=== PATIENT | male | born 1955 | race Caucasian/White ===

== ENCOUNTER 2016-05-17 15:29 | Outpatient (CLI) | payer OTHER, BC | END 2016-05-17 15:30 | disposition home or self-care (01) | DX: M51.26 Other intervertebral disc displacement, lumbar region (principal); M46.96 Unspecified inflammatory spondylopathy, lumbar region; M51.36 Other intervertebral disc degeneration, lumbar region; M25.48 Effusion, other site ==

== ENCOUNTER 2016-08-12 16:07 | Outpatient (CLI) | payer BC ==
--- NOTE | 2016-08-13 12:29 | XRAY Report ---
TWO-VIEW CHEST: 08/12/2016 CLINICAL INDICATION: Cough. FINDINGS: Frontal and lateral views of the chest are compared to previous films of 02/22/2013. The cardiac silhouette is within normal limits. Patchy bibasilar infiltrates are now present, superimpos ed upon COPD. No effusion or pneumothorax. IMPRESSION: PATCHY BIBASILAR AIRSPACE DISEASE, SUPERIMPOSED UPON COPD. JOB #: [id number] EXT JOB #:[id number]
== END 2016-08-12 16:08 | disposition home or self-care (01) ==
LOC: DI 16:07
PROVIDERS: ATTEND Internal Medicine
DX: J98.4 Other disorders of lung (principal); J44.9 Chronic obstructive pulmonary disease, unspecified
CPT/HCPCS: 71020

== ENCOUNTER 2016-09-13 09:32 | Outpatient (CLI) | payer BC ==
--- NOTE | 2016-09-13 12:56 | XRAY Report ---
TWO-VIEW CHEST: 09/13/2016 CLINICAL INDICATION: Followup infiltrates. COMPARISON: 08/12/2016 FINDINGS: Frontal and lateral views of the chest demonstrate a normal cardiac silhouette. Bibasilar air-space disease has improved. No effusion or pneumothorax is present. Hyperinflation is stable. IMPRESSION: IMPROVING BIBASILAR INFILTRATES. JOB #: [id number] EXT JOB #:[id number]
== END 2016-09-13 09:33 | disposition home or self-care (01) ==
LOC: DI 09:32
PROVIDERS: ATTEND Internal Medicine
DX: R91.8 Other nonspecific abnormal finding of lung field (principal)
CPT/HCPCS: 71020

== ENCOUNTER 2016-09-27 10:32 | Outpatient (CLI) | payer BC ==
[2016-09-27 10:56] LABS: CREATININE 0.7 mg/dL (0.6-1.2)
[2016-09-27] MEDS ORDERED: IOPAMIDOL-300 100 ML VIAL IVP ONE (11:29)
--- NOTE | 2016-09-27 13:33 | CT Report ---
CT CHEST WITH CONTRAST: 09/27/2016 CLINICAL INDICATION: Cough, infiltrate. TECHNIQUE: Axial CT images of the chest were obtained with 100 mL Isovue-300 intravenously. COMPARISON: Plain film 09/13/2016, 08/12/2016, CT 02/22/2013. FINDINGS: The heart and great vessels are unremarkable. No hilar or mediastinal lymphadenopathy is present. There is minimal ground-glass opacity in the lateral left upper lobe. No other infiltrate. No effusion or pneumothorax. Osseous structures demonstrate degenerative changes. Limited evaluat ion of upper abdominal structures demonstrates diffuse fatty infiltration of the liver. A cyst is se en arising from the posterior cortex of the right kidney. The adrenal glands are unremarkable. IMPRESSION: MINIMAL RESIDUAL GROUND-GLASS OPACITY IN THE LATERAL ASPECT OF THE LEFT UPPER LOBE. FAT TY INFILTRATION OF THE LIVER. In accordance with CT protocol optimization, one or more of the following dose reduction techniques w ere utilized for this exam: automated exposure control, adjustment of mA and/or KV based on patient size, or use of iterative reconstructive technique. JOB #: [id number] EXT JOB #:[id number]
== END 2016-09-27 10:33 | disposition home or self-care (01) ==
LOC: LAB 10:32
PROVIDERS: ATTEND Internal Medicine
DX: R91.8 Other nonspecific abnormal finding of lung field (principal); K76.0 Fatty (change of) liver, not elsewhere classified; R05 Cough
CPT/HCPCS: 36415; 71260; 82565; Q9967

== ENCOUNTER 2016-11-06 09:12 | Outpatient (CLI) | payer BC ==
[2016-11-06] MEDS ORDERED: ALBUTEROL NEB 2.5 MG/3 ML INH ONE (11:00)
== END 2016-11-06 09:13 | disposition home or self-care (01) ==
LOC: RT 09:12
PROVIDERS: ATTEND Internal Medicine
DX: R05 Cough (principal)
CPT/HCPCS: 94060; J7613

== ENCOUNTER 2017-06-05 07:34 | Day surgery (SDC) | payer BC ==
[2017-06-05] MEDS ORDERED: LACTATED RINGERS 1,000 ML IV ONE (07:38)
[2017-06-05] MEDS ORDERED: fentaNYL 250 MCG/5 ML VIAL IVP ONE (09:11)
[2017-06-05] MEDS ORDERED: MIDAZOLAM 2 MG/2 ML VIAL IVP ONE (09:11)
[2017-06-05 09:57] VITALS: BP 142/86
== END 2017-06-05 07:35 | disposition home or self-care (01) ==
LOC: SDS 07:34
PROVIDERS: ATTEND Surgery
PROC: 0DBN8ZX Excision of Sigmoid Colon, Via Natural or Artificial Opening Endoscopic, Diagnostic (ICD-10-PCS; 2017-06-05)
PROC: 0DBP8ZX Excision of Rectum, Via Natural or Artificial Opening Endoscopic, Diagnostic (ICD-10-PCS; 2017-06-05)
PROC: 0DBK8ZX Excision of Ascending Colon, Via Natural or Artificial Opening Endoscopic, Diagnostic (ICD-10-PCS; principal; 2017-06-05 08:45)
DX: Z12.11 Encounter for screening for malignant neoplasm of colon (principal); K51.40 Inflammatory polyps of colon without complications; K63.5 Polyp of colon; K57.30 Diverticulosis of large intestine without perforation or abscess without bleeding; K64.8 Other hemorrhoids; E11.9 Type 2 diabetes mellitus without complications
CPT/HCPCS: 45380; J3010; J7120; 88305

== ENCOUNTER 2018-12-29 13:04 | Emergency (ER) | payer BC, OTHER ==
--- NOTE | 2018-12-29 14:14 | ED Physician Documentation ---
History of Present Illness - Stated complaint Stated Complaint: FINGER LAC - Chief complaint Chief Complaint: Laceration - Additonal information Additional information: This is a 63-year-old male who presents with a laceration to pinky. He was using a sazall and his pinky he sounds like skimmed the blade and his finger breifly got impinged briefly against saw guard. He pulled away quickly and had a small cut that was bleeding, but he noticed some swelling on the Palmar surface of his finger so he wanted to get checked out. He denies numbness or tingling. The bleeding is been well controlled. He has not had a tetanus shot in many years. Review of Systems Skin: reports: Laceration (s) Musculoskeletal: reports: Extremity pain PD PAST MEDICAL HISTORY - Past Medical History Past Medical History: Yes Cardiovascular: None Respiratory: Pneumonia Endocrine/Autoimmune: None GI: Cholelithiasis : Kidney stones HEENT: None Psych: None Musculoskeletal: Osteoarthritis, Chronic back pain Derm: None - Past Surgical History Past Surgical History: Yes General: Cholecystectomy Ortho: Hip replacement, Spine surgery HEENT: Tonsil/Adenoidectomy - Present Medications Home Medications: Ambulatory Orders Medication Instructions Recorded Confirmed Acetaminophen [Tylenol] 1,000 mg PO BID 06/04/17 06/04/17 - Allergies Allergies/Adverse Reactions: Allergies Allergy/AdvReac Type Severity Reaction Status Date / Time No Known Drug Allergies Allergy Verified 01/04/14 01:14 - Social History Does the pt smoke?: No Smoking Status: Never smoker Does the pt drink ETOH?: No Does the pt have substance abuse?: No - Immunizations Immunizations are current?: Yes - POLST Patient has POLST: No PD ED PE NORMAL - Vitals Vital signs reviewed: Yes - General General: Alert and oriented X 3, No acute distress - Cardiac Cardiac: Strong equal pulses - Respiratory Respiratory: No respiratory distress - Extremities Extremities: Other (Left pinky finger has a 1 center meter laceration that extends from the ulnar aspect of the dorsal distal pinky to the edge of the lat eral nail fold, it does not damage the nail, no signs of nailbed or nail matrix involvement. There is no active bleeding. The wound approximates well with extension of the pinky. Sensation is intact light touch. There is no active bleeding. Patient is able to flex and extend his DIP joint PIP joint and MCP against resistance without issue. There is no signs of foreign body or tendon involvement. No exposed bone.) - Neuro Neuro: Alert and oriented X 3 - Psych Psych: Normal mood, Normal affect Results - Vitals Vitals: Oxygen O2 Source Room air Procedures - Laceration (location) Finger left Length in cm: 1 Wound type: Linear Neurovascular status: Sensory intact, Motor intact, Vascular intact Tendon involvement: Tendon intact Wound Preparation: Irrigated copiously NS Skin layer closure: Dermabond, Steri strips Other: Patient tolerated well, No complications, Tetanus booster given Complexity: Simple PD MEDICAL DECISION MAKING - ED course ED course: Pt presents with a simple laceration without bone or tendon involvement, digit is neurovascularly intact. It was cleaned and repaired with steri-strips and skin glue with a very good result. Tdap updated, wound care and followup/return precautions reviewed. Departure - Departure Disposition: 01 Home, Self Care Clinical Impression: Laceration of finger Qualifiers: Encounter type: initial encounter Finger: little finger Damage to nail status: without damage Foreign body presence: without foreign body Laterality: left Qualified Code(s): S61.217A - Laceration without foreign body of left little finger without damage to nail, initial encounter Condition: Good Instructions: ED Laceration Ext Skin Glue Follow-Up: Basilia Echevarria MD [Primary Care Provider] - (As needed) Comments: You were seen today for a laceration of your finger, this was repaired with a steri strip and skin glue that should flake off over the next 1-2 weeks. If you have signs of infection such as redness streaking up your finger or pus draining from the wound, please return to the emergency department. Discharge Date/Time: 12/29/18 15:06
[2018-12-29] MEDS ORDERED: TETANUS/DIPHTHERIA/PERTUSSIS 0.5 ML SYRINGE IM ONE (14:33)
[2018-12-29 15:07] VITALS: BP 165/80
== END 2018-12-29 15:06 | disposition home or self-care (01) ==
LOC: ED 13:04
DX: S61.217A Laceration without foreign body of left little finger without damage to nail, initial encounter (principal); W27.0XXA Contact with workbench tool, initial encounter; Z96.649 Presence of unspecified artificial hip joint; Z23 Encounter for immunization
CPT/HCPCS: 12001; 90471

== ENCOUNTER 2020-08-05 12:55 | Outpatient (CLI) | payer OTHER ==
--- NOTE | 2020-08-05 14:09 | Ultrasound Report ---
PROCEDURE: Head or Neck Soft Tissue INDICATIONS: ENLARGED LYMPH NODES TECHNIQUE: Real time scanning was performed of the neck region of interest, with image documentation . COMPARISON: None. FINDINGS: No soft tissue neck abnormality seen bilaterally. Note is made of several small lymph node s adjacent to the left submandibular gland but no enlarged lymph nodes are seen. The adjacent thyroid is normal in size. IMPRESSION: Normal size lymph nodes bilaterally, right side for comparison to the left side. Left side asymmetric palpable differences when compared to the right may be secondary to an inflammatory component or era ctive component involving the left-sided nodes. Continued clinical follow-up is recommended. Reviewed by: Finn Roman MD on 08/05/2020 1:08 PM [facility] Approved by: Finn Roman MD on 08/05/2020 1:08 PM [facility]AM[facility] Station ID: [id number]
== END 2020-08-05 12:56 | disposition home or self-care (01) ==
LOC: DI 12:55
PROVIDERS: ATTEND Internal Medicine
DX: R93.89 Abnormal findings on diagnostic imaging of other specified body structures (principal)

== ENCOUNTER 2020-09-09 10:56 | Emergency (ER) | payer OTHER ==
--- NOTE | 2020-09-09 11:17 | ED Physician Documentation ---
PD HPI URI - Stated complaint Stated Complaint: COUGH/THROAT PX - Chief complaint Chief Complaint: Heent - History obtained from History obtained from: Patient - History of Present Illness Timing - onset: How many days ago (3) Timing duration: Days (3) Timing details: Gradual onset, Still present Associated symptoms: Nasal congestion, Sore throat, Dry cough, Dyspnea. No: Fever, Chest pain, NVD Contributing factors: Sick contact (his daughter with similar symptoms and Dx with rhinovirus by PCR test last week (negative for COVID).) Similar symptoms before: Has not had sx before Recently seen: Other (COVID vaccine months ago) Review of Systems Constitutional: reports: Myalgias. denies: Fever Ears: denies: Ear pain Nose: reports: Congestion Throat: reports: Sore throat Respiratory: reports: Dyspnea, Cough. denies: Hemoptysis, Wheezing GI: denies: Abdominal Pain, Nausea, Vomiting, Diarrhea Skin: denies: Rash Neurologic: denies: Altered mental status, Headache PD PAST MEDICAL HISTORY - Past Medical History Cardiovascular: None Respiratory: Pneumonia Endocrine/Autoimmune: None GI: Cholelithiasis : Kidney stones HEENT: None Psych: None Musculoskeletal: Osteoarthritis, Chronic back pain Derm: None - Past Surgical History Past Surgical History: Yes General: Cholecystectomy Ortho: Hip replacement, Spine surgery HEENT: Tonsil/Adenoidectomy - Present Medications Home Medications: Ambulatory Orders Medication Instructions Recorded Confirmed Amoxicillin 500 mg PO TID #18 cap 09/09/20 Benzonatate [Tessalon] 100 mg PO TID PRN #20 cap 09/09/20 Tramadol HCl [Ultram] 50 mg PO Q6H PRN #12 tablet 09/09/20 dexAMETHasone [Decadron] 4 mg PO DAILY #5 tablet 09/09/20 glipiZIDE [Glipizide] 10 mg PO DAILY 09/09/20 09/09/20 lisinopriL [Zestril] 5 mg PO DAILY 09/09/20 09/09/20 - Allergies Allergies/Adverse Reactions: Allergies Allergy/AdvReac Type Severity Reaction Status Date / Time No Known Drug Allergies Allergy Verified 09/09/20 11:30 - Social History Does the pt smoke?: No Smoking Status: Never smoker Does the pt drink ETOH?: No Does the pt have substance abuse?: No - Immunizations Immunizations are current?: Yes - POLST Patient has POLST: No PD ED PE NORMAL - Vitals Vital signs reviewed: Yes - General General: Alert and oriented X 3, No acute distress, Well developed/nourished - HEENT HEENT: Ears normal, Moist mucous membranes, Pharynx benign - Neck Neck: Supple, no meningeal sign, No adenopathy - Cardiac Cardiac: RRR, No murmur - Respiratory Respiratory: Clear bilaterally - Abdomen Abdomen: Soft, Non tender - Derm Derm: Normal color, Warm and dry - Extremities Extremities: No edema - Neuro Neuro: Alert and oriented X 3, No motor deficit, Normal speech Results - Vitals Vitals: Vital Signs - 24 hr 09/09/20 09/09/20 11:04 12:58 Temperature 36.9 C Heart Rate 80 78 Respiratory 18 18 Rate Blood Pressure 146/85 H 150/90 H O2 Saturation 95 100 Oxygen O2 Source Room air PD MEDICAL DECISION MAKING - ED course Complexity details: considered differential (clinically doers not seem pneumonia. Exposed to family member with rhiovirus recently and the person was negative for COVID, and patient had vaccine months ago. So low prob for COVID. Can treat as likely viral. ), d/w patient Departure - Departure Disposition: 01 Home, Self Care Clinical Impression: Upper respiratory infection Qualifiers: URI type: unspecified URI Qualified Code(s): J06.9 - Acute upper respiratory infection, unspecified Dyspnea Qualifiers: Dyspnea type: shortness of breath Qualified Code(s): R06.02 - Shortness of breath Condition: Stable Record reviewed to determine appropriate education?: Yes Instructions: ED Upper Resp Infec No Abx Tx Follow-Up: Basilia Echevarria MD [Primary Care Provider] - Prescriptions: Amoxicillin 500 mg PO TID #18 cap dexAMETHasone [Decadron] 4 mg PO DAILY #5 tablet Benzonatate [Tessalon] 100 mg PO TID PRN #20 cap PRN Reason: Cough Tramadol HCl [Ultram] 50 mg PO Q6H PRN #12 tablet PRN Reason: Pain Comments: This is most likely a viral illness. We will try treating it with Decadron steroid for inflammation of the airways daily for 5 more days. Tessalon if need ed for cough and irritation. Add Tramadol if needed for throat pain or cough if needed as well. Use your albuterol inhaler 2 to 3 puffs 4 times a day for the next several days and then as needed. See how you do with the above medications and treatments. If you are not improving well over the next few days or have increased symptoms, then consider also a bacterial infection atop the viral and add amoxicillin as directed. If you are improving over the next few days, then hold on the antibiotic. You have a Covid test pending. You need to self quarantine until the result is done and negative. Do not leave your house. Do not get near anybody. The results should be done in 48 to 72 hours, but sometimes longer. We will call with a positive result, the fastest way to get a negative result for confirmation though is to go to the hospital website at [email or web address], click on the my [facility] tab and sign up for the patient portal. If any friends or family get sick and would like to have a Covid test done, but do not have signs or symptoms that would necessitate being hospitalized, we encourage testing through our coronavirus swabbing station, call [phone] to schedule an appointment. Discharge Date/Time: 09/09/20 12:58
[2020-09-09] MEDS ORDERED: DEXAMETHASONE 10 MG/ML VIAL PO STA (12:03)
[2020-09-09] MEDS ORDERED: BENZONATATE 100 MG CAPSULE PO STA (12:03)
[2020-09-09] MEDS ORDERED: CHERRY SYRUP 10 ML UDC PO ONE (12:03)
[2020-09-09] MEDS ORDERED: HYDROcod/ACETAM 5/325 MG TABLET PO STA (12:03)
[2020-09-09] MEDS ORDERED: diphenhydrAMINE ELIXIR 25 MG/10 ML UDC PO STA (12:04)
[2020-09-09] MEDS ORDERED: traMADol 50 MG TABLET PO STA (12:33)
[2020-09-09 13:01] VITALS: BP 150/90
== END 2020-09-09 12:58 | disposition home or self-care (01) ==
LOC: ED 10:56
DX: J06.9 Acute upper respiratory infection, unspecified (principal); R06.02 Shortness of breath; Z20.822 Contact with and (suspected) exposure to COVID-19
CPT/HCPCS: 87635; 99283; 99284; A9270

== ENCOUNTER 2021-05-14 15:29 | Outpatient (CLI) | payer MEDICARE, OTHER | END 2021-05-14 15:30 | disposition home or self-care (01) | LOC: LAB 15:29 | PROVIDERS: ATTEND Orthopaedic Surgery | DX: M25.552 Pain in left hip (principal) | CPT/HCPCS: 81599; 82495; 83018 ==

== ENCOUNTER 2021-07-02 09:50 | Outpatient (CLI) | payer MEDICARE, OTHER | END 2021-07-02 09:51 | disposition home or self-care (01) | LOC: NS 09:50 | PROVIDERS: ATTEND Internal Medicine | DX: Z71.3 Dietary counseling and surveillance (principal); E11.9 Type 2 diabetes mellitus without complications | CPT/HCPCS: 97802 ==

== ENCOUNTER 2021-07-03 10:59 | Outpatient (CLI) | payer MEDICARE, OTHER ==
[2021-07-03 14:28] LABS: BASOPHILS % (AUTO) 0.6 %; EOSINOPHILS # (AUTO) 0.2 10^3/uL (0.0-0.7); EOSINOPHILS % (AUTO) 2.1 %; HCT - HEMATOCRIT 47.1 % (42.0-52.0); HGB - HEMOGLOBIN 16.3 g/dL (14.0-18.0); LYMPHOCYTES # (AUTO) 1.9 10^3/uL (1.5-3.5); LYMPHOCYTES % (AUTO) 26.3 %; MEAN CORPUSCULAR HGB CONC 34.6 g/dL (32.0-36.0); MEAN CORPUSCULAR VOLUME 92.4 fL (80.0-94.0); MEAN PLATELET VOLUME 10.2 fL (7.4-11.4); MONOCYTES # (AUTO) 0.8 10^3/uL (0.0-1.0); MONOCYTES % (AUTO) 10.8 %; NEUTROPHILS # (AUTO) 4.3 10^3/uL (1.5-6.6); NEUTROPHILS % (AUTO) 59.9 %; PLT - PLATELET COUNT 249 10^3/uL (130-450); RED CELL DISTRIBUTION WIDTH 12.2 % (12.0-15.0); WHITE BLOOD COUNT 7.2 x10^3/uL (4.8-10.8)
[2021-07-03 14:44] LABS: ALBUMIN 4.5 g/dL (3.2-5.5); ALBUMIN/GLOBULIN RATIO 1.4 (1.0-2.2); ALKALINE PHOSPHATASE 54 IU/L (42-121); ALT ALANINE AMINOTRANSFERASE 28 IU/L (10-60); AST ASPARTATE AMINOTRANSFERASE 29 IU/L (10-42); BILIRUBIN,TOTAL 0.8 mg/dL (0.2-1.0); BUN - BLOOD UREA NITROGEN 18 mg/dL (6-20); CALCIUM 9.7 mg/dL (8.5-10.3); CARBON DIOXIDE - CO2 24 mmol/L (21-32); CHLORIDE 101 mmol/L (101-111); CHOL/HDL RATIO 4.8 (<5.0); CHOLESTEROL 206 mg/dL; CREATININE 0.8 mg/dL (0.6-1.2); GFR - MDRD 97 (>89); GLUCOSE 142 mg/dL (70-100); HDL CHOLESTEROL 43 mg/dL; LDL CHOLESTEROL,CALCULATED 125 mg/dL; LDL/HDL RATIO 2.9 (<3.6); POTASSIUM 4.5 mmol/L (3.5-5.0); SODIUM 134 mmol/L (135-145); TOTAL PROTEIN 7.7 g/dL (6.7-8.2); TRIGLYCERIDES 188 mg/dL; VLDL CHOLESTEROL 38 mg/dL
[2021-07-03 15:01] LABS: BILIRUBIN,URINE NEGATIVE (NEGATIVE); GLUCOSE, URINE (UA) NEGATIVE (NEGATIVE); KETONES,URINE (UA) NEGATIVE (NEGATIVE); LEUKOCYTE ESTERASE, URINE NEGATIVE (NEGATIVE); NITRITE,URINE NEGATIVE (NEGATIVE); OCCULT BLOOD,URINE NEGATIVE (NEGATIVE); PH,URINE 5.5 PH (5.0-7.5); PROTEIN,URINE NEGATIVE (NEGATIVE); UROBILINOGEN,URINE 0.2 (NORMAL) E.U./dL (NORMAL)
[2021-07-03 15:17] LABS: AMORPHOUS SEDIMENT,UR Few /LPF; BACTERIA,URINE Rare /HPF (None Seen); CLARITY,URINE CLOUDY (CLEAR); MUCUS,URINE Few Strands; RBC,URINE 0-5 /HPF (0-5); SQUAMOUS EPITHELIAL CELL,UR FEW Squamous (<= Few); WBC,URINE 0-3 /HPF (0-3)
[2021-07-03 15:18] LABS: CRYSTALS,URINE 3-5 Calcium Oxalate /LPF
[2021-07-03 20:42] LABS: ESTIMATED AVERAGE GLUCOSE 140 mg/dL (70-100); HEMOGLOBIN A1c% 6.5 % (4.27-6.07)
== END 2021-07-03 11:00 | disposition home or self-care (01) ==
LOC: LAB.S 10:59
PROVIDERS: ATTEND Internal Medicine
DX: I10 Essential (primary) hypertension (principal); R20.1 Hypoesthesia of skin; E11.9 Type 2 diabetes mellitus without complications; E55.9 Vitamin D deficiency, unspecified; R53.83 Other fatigue
CPT/HCPCS: 36415; 80053; 80061; 81001; 82306; 83036; 83721; 84443; 85025; 87086

== ENCOUNTER 2021-07-06 08:00 | Outpatient (CLI) | payer MEDICARE, OTHER ==
[2021-07-06 16:19] LABS: CREATININE,URINE 187.1 mg/dL; MICROALBUM/CREATININE RATIO,UR 18.2 ug/mg (<30.0); MICROALBUMIN,URINE 3.4 mg/dL (0-300.0)
== END 2021-07-06 23:59 | disposition home or self-care (01) ==
LOC: LAB.R 08:00
PROVIDERS: ATTEND Internal Medicine
DX: Z00.00 Encounter for general adult medical examination without abnormal findings (principal); E11.9 Type 2 diabetes mellitus without complications; M25.552 Pain in left hip; N20.0 Calculus of kidney; M19.90 Unspecified osteoarthritis, unspecified site; R80.9 Proteinuria, unspecified; R10.11 Right upper quadrant pain
CPT/HCPCS: 82043; 82570

== ENCOUNTER 2021-07-25 08:47 | Outpatient (CLI) | payer MEDICARE, OTHER ==
--- NOTE | 2021-07-25 16:51 | Ultrasound Report ---
PROCEDURE: Abdomen Limited INDICATIONS: RUQ PAIN TECHNIQUE: Real-time scanning was performed of the abdominal and retroperitoneal organs, with image documentatio n. COMPARISON: None. FINDINGS: Liver: The liver measures 17.6 cm in length and demonstrates coarse echogenicity. Gallbladder: Surgically absent Biliary ducts: Intrahepatic bile ducts are non-dilated. Extrahepatic bile duct caliber measures 4.3 mm. Normal is 6-7 mm or less in diameter, or 10 mm or less post-cholecystectomy. Pancreas: Visualized portions of the pancreas are sonographically normal. Spleen: Spleen is normal in size and homogeneous in echotexture. Kidneys: Right kidney measures 14.6 cm long. No hydronephrosis or nephrolithiasis. No solid masses . There are multiple anechoic right renal cysts. A 16 mm in diameter nonobstructing calculus is pres ent within the right kidney. IMPRESSION: 1. Increased hepatic echogenicity suggesting hepatic steatosis although other sources of hepatocellul ar dysfunction could be considered in the differential diagnosis. 2. Nonobstructing right nephrolithiasis. No hydronephrosis. Reviewed by: Nanci Rob MD on 07/25/2021 4:50 PM PDT Approved by: Nanci Rob MD on 07/25/2021 4:50 PM PDT Station ID: [id number]
== END 2021-07-25 08:48 | disposition home or self-care (01) ==
LOC: DI 08:47
PROVIDERS: ATTEND Internal Medicine
DX: R10.11 Right upper quadrant pain (principal); N20.0 Calculus of kidney

== ENCOUNTER 2021-08-20 10:23 | Outpatient (CLI) | payer MEDICARE, OTHER | END 2021-08-20 10:24 | disposition home or self-care (01) | LOC: NS 10:23 | PROVIDERS: ATTEND Internal Medicine | DX: Z71.3 Dietary counseling and surveillance (principal); E11.9 Type 2 diabetes mellitus without complications | CPT/HCPCS: 97803 ==

== ENCOUNTER 2022-04-02 08:52 | Outpatient (CLI) | payer MEDICARE, OTHER ==
[2022-04-02 09:48] VITALS: BP 128/78
--- NOTE | 2022-04-02 09:48 | SLEEP CARE CONSULTATION ---
Information from patient questionnaire entered by Forest Estrada. I have reviewed and concur with the information entered by Forest Estrada. This document represents the service I personally performed and the decisions made by me, Eboni Joyner ARNP. History of Present Illness Service Date and Time: 04/02/2022 0852 Reason for Visit: New patient Chief Complaint: reports: Unrefreshed sleep, Snoring, Excessive daytime sleepiness, Observed pauses in breathing, Fatigue, Frequent awakenings at night Date of Onset: 3+YRS Usual bedtime: 9PM Time it takes to fall asleep: 1-1.5HRS Snores at night: Yes Observed to quit breathing while asleep: Yes Sleeps alone due to snoring: No Number of times waking at night: 5-6 Reasons for waking at night: reports: Snoring, Gasping for air, Pain, Bathroom, Other (NOISE AND UNKNOWN REASONS). denies: Choking Toss, Turn, or Twitch while sleeping: Yes Recalls having dreams: Yes Usually gets out of bed at: 7AM Feels refreshed in the morning: No Morning headache: No Sleepy or fatigued during the day: Yes Ever fallen asleep while driving: No (some times late at night, generally not) Takes day naps: Yes (daily for about 10 mins) Dreams during day naps: No Prior sleep studies: No Additional HPI information: I had the pleasure of seeing LINWOOD MEDINA today regarding the possibility of him having a sleep disorder. His current complaints are excessive daytime sleepiness, fatigue, frequent night awakenings, observed pauses in breathing, snoring and unrefreshed sleep. He states he has trouble with sleeping for his whole life. In the last few years his has been telling him that he snores and stops breathing for years but he put things off. He states recently he woke up feeling like he was gasping for air. He has been told by anesthesiologists that he needed to look into having a sleep study. His is on a CPAP but does not like it. He had a procedure with an anesthesiologist who was heavy handed on putting the mask on him and he has some claustrophobia because of this incidence. - Parasomnia Symptoms Ever been unable to move upon waking from sleep: No Walks in sleep: No Talks in sleep: No Ever acted out dreams in sleep: No Ever felt weak in the knees when startled or emotional: No Bothered by creepy, crawly, restless sensations in legs: No Problems with memory or concentration: No Subjective Initial [place] Sleepiness Scale score: 17 (03/23/22) Past Medical History Past Medical History: reports: Hypertension, Diabetes, Arthritis, Other (kidney stones) Social History The patient's occupation is a RE. Patient is and lives in [place]. Have you smoked in the past 12 months: No Alcohol use: Yes Alcohol amount and frequency: 1-3 DRINKS EVERY MONTH OR EVERY OTHER MONTH Caffeine use: Yes Caffeine amount and frequency: 1-2 cups daily Family History Family history of sleep disordered breathing: Yes Family Hx Sleep Apnea: Sibling: Sleep apnea - Untreated, Other: Sleep apnea - Treated (NEPHEW) Allergies and Home Medications Known drug allergies: No Drug allergies reviewed: Yes Home medication list reviewed: Yes Allergy and home medication list: Medications: Januvia 100 mg Lisinopril 5 mg Tamsulosin 0.4 mg Ibuprofen 200 mg x 2, twice a day Review of Systems Weight gain over past 5 years: 15 (up at this time) Weight loss over past 5 years: 25 Cardiovascular: reports: high blood pressure Respiratory: reports: shortness of breath Gastrointestinal: denies: heartburn Urinary: reports: other (KIDNEY STONES) Neurological: denies: headaches Psychiatric: denies: anxiety, depression Ear/Nose/Throat: reports: dry mouth/throat. denies: tonsillectomy Musculoskeletal: reports: joint pain, back pain Physical Exam Vital signs obtained and entered by: FOREST Zhang MA Blood Pressure: 128/78 (LEFT ARM) Cuff size: regular Heart Rate: 60 O2 Saturation: 96 Height: 5 ft 11 in Weight: 320 lb 9.6 oz Body Mass Index: 44.6 BMI Classification: Morbidly Obese Neck circumference: 19.75 Mouth and throat: narrow oropharynx Soft palate: long Hard palate: normal Uvula: normal Uvula visualization: 0% Mallampati Class IV Tongue: enlarged in size with teeth schulte on lateral edges Tonsils: 2+ Neck: normal w/o lymphadenopathy or thyromegaly Heart: regular rate and rhythm Lungs: clear bilaterally Impression and Plan 1. Suspected Obstructive Sleep Apnea-Hypopnea Syndrome, as suggested by a history of loud and irregular snoring, observed cessation of breath while asleep, gasping or choking in sleep, frequent awakening during the night, unrefreshed sleep, and excessive daytime sleepiness. Narrow oropharynx and obesity are common predisposing factors for obstructive sleep apnea-hypopnea syndrome. I recommend proceeding to polysomnography to confirm the diagnosis and to assess severity. Patient does not think he can sleep in the sleep lab. I advised that Medicare prefers an in lab sleep study and may not pay for home study if not diagnosed with sleep disordered breathing. I also offered him a sleep aid the night of the study in lab. He declined a sleep aid and wants to try for a home study. I informed the patient of what the sleep studies involve and after some discussion, obtained agreement to proceed. The pathophysiology of obstructive sleep apnea-hypopnea syndrome was discussed with the patient and health risks of cardiovascular and cerebrovascular disease if not treated. Risks of drowsy driving discussed in detail and patient advised to avoid long distance driving and to toe puller at the first sign of drowsiness. Patient agreed to plan. * Schedule polysomnography * Avoid long distance driving or driving when feeling sleepy. * Avoid alcohol, sedative and muscle relaxant around bedtime. * Attempt to lose weight. * Review instructions provided by trained office staff on how to prepare for the sleep study. * Return for follow-up after sleep study completed. Counseling Topics: Weight loss health impact Visit Type: In Office Time Spent with Patient (minutes): 30 Provider Statement: I spent 100% of the Face to Face Visit with the patient with greater than 50% spent counseling the patient and coordination of care.
== END 2022-04-02 08:53 | disposition home or self-care (01) ==
LOC: SC 08:52
PROVIDERS: ATTEND Nurse Practitioner Family
DX: G47.10 Hypersomnia, unspecified (principal); R53.83 Other fatigue; G47.8 Other sleep disorders; R06.83 Snoring; R06.81 Apnea, not elsewhere classified; E11.9 Type 2 diabetes mellitus without complications; I10 Essential (primary) hypertension; E66.01 Morbid (severe) obesity due to excess calories; Z68.41 Body mass index [BMI] 40.0-44.9, adult
CPT/HCPCS: 99203; G0463; 99212

== ENCOUNTER 2022-04-23 09:26 | Outpatient (CLI) | payer MEDICARE, OTHER | END 2022-04-23 09:27 | disposition home or self-care (01) | LOC: SC 09:26 | PROVIDERS: ATTEND Nurse Practitioner Family | DX: G47.33 Obstructive sleep apnea (adult) (pediatric) (principal); R09.02 Hypoxemia | CPT/HCPCS: G0399 ×2; 95806 ==

== ENCOUNTER 2022-05-08 16:47 | Outpatient (CLI) | payer MEDICARE, OTHER ==
--- NOTE | 2022-05-08 16:48 | SLEEP CARE CONSULTATION ---
Information from patient questionnaire entered by Aide Estarda. I have reviewed and concur with the information entered by Aide Estrada. This document represents the service I personally performed and the decisions made by me, Eboni Joyner ARNP. History of Present Illness Service Date and Time: 05/08/2022 1620 Initial [place] Sleepiness Scale score: 17 (03/23/22) Current [place] Sleepiness Scale score: 12 Additional HPI information: LINWOOD MEDINA returns via telehealth visit for follow up and results of the recently performed home sleep study. I explained the pathophysiology behind obstructive sleep apnea. We then spent quite a bit of time discussing different treatment options. For mild obstructive sleep apnea, surgery and oral appliance are alternatives to nasal CPAP therapy but in moderate or severe cases, nasal CPAP is the most effective and reliable treatment. Because apnea is primarily in supine position, then positional management therapy could be effective. Methods discussed such as positioning with pillows to prevent supine sleep. I reviewed the impact of weight changes on sleep apnea and strongly recommended losing weight. After some discussion, the patient opted to go with the nasal CPAP therapy. Nasal autoCPAP set at 4-15 cmH20 will be ordered with rationale explained. A manual titration study will be ordered if unable to find optimal pressure with office adjustments. I explained how CPAP machine works and what to expect when using the machine. Using CPAP every night in order to get used to it was emphasized. Patient advised to put CPAP mask on before getting into bed so as not to fall asleep without CPAP. To assist acclimation to CPAP use, it could also be used for a short time during day while reading or watching TV. The patient was instructed to call the CPAP supplier to discuss any mechanical problem that may occur. If the mask given is uncomfortable or is difficult to keep on through the night even with adjustment, contact the CPAP supplier as many will replace with ano ther mask style if notified before 30 days. If snoring or perceives is not getting enough air or too much air from the machine, notify this office. Patient counseled not drink alcohol less than 4 hours before bedtime as it can increase snoring and apnea. Patient was cautioned about risks of drowsy driving until sleepiness symptoms resolve. Patient denies drowsy driving. Sleep Study - Results Type of Sleep Study: Home sleep study (COMPLETED 04/23/22) Prior sleep studies: No Polysomnography/Home Sleep Study results: Physician Impression: The quality of the study is good. The length of the study is adequate (> 240 minutes). Please also see the tabulated and graphic data. 1. Obstructive Sleep Apnea-Hypopnea (ICD-10 G47.33), severe, with an AHI of 41.1/hr and zane SaO2 of 78%. During the study, the patient had 255 apneas (254 obstructive, 0 central, 1 mixed) and 96 hypopneas. The longest episode lasted 119.0 seconds. The respiratory events occurred independently of sleep stage and body position (supine AHI was 25.4 and non-supine, 41.27). 2. Hypoxemia (ICD-10 R09.02), moderate, with the lowest oxygen saturation of 78 % and 78.6 minutes with SaO2 under 90%. Baseline oxygen saturation was normal (Average oxygen sat uration was 91%). Allergies and Home Medications Known drug allergies: No Drug allergies reviewed: Yes Home medication list reviewed: Yes (no changes) Review of Systems Review of systems same as previous: Yes (no changes) Physical Exam Vital signs obtained and entered by: AIDE Zhang MA Height: 5 ft 11 in Weight: 315 lb Body Mass Index: 43.9 BMI Classification: Morbidly Obese Impression and Plan 1. Obstructive Sleep Apnea-Hypopnea Syndrome, severe, with lowest oxygen saturation of 78%. Obviously this is the cause of the patients symptoms of unrefreshed sleep, and excessive daytime sleepiness. Positive pressure therapy could benefit hypertension and diabetes. As mentioned above, the patient will be started on nasal autoCPAP therapy with pressure set at 4-15 cmH2O. A manual titration study will be completed if unable to find optimal treatment pressure with office adjustments. Compliance guidelines also reviewed. A copy of compliance guidelines will be given for reference at check out. 2. Hypoxemia, moderate, with the lowest oxygen saturation of 78 % and 78.6 minutes with SaO2 under 90%. His baseline oxygen saturation was normal with an average oxygen saturation of 91%. * Nasal auto CPAP therapy, pressure at 4-15 cm H2O. * Attempt to lose weight. * Avoid alcohol consumption near bedtime. * Avoid supine sleep until using CPAP. * The patient is again cautioned about driving until sleepiness completely resolves. * Return one month after CPAP obtained. I will assess response to therapy and compliance at that time. Counseling Topics: Weight loss health impact Visit Type: Telehealth Phone Video Type: Doximity Location of Provider: Office Patient agrees and consents to this telehealth visit type: Yes Patient agrees to have their insurance billed: Yes Time Spent with Patient (minutes): 20 Provider Statement: I spent 100% of the Telehealth Phone Call with the patient with greater than 50% spent counseling the patient and coordination of care.
== END 2022-05-08 16:48 | disposition home or self-care (01) ==
LOC: SC 16:47
PROVIDERS: ATTEND Nurse Practitioner Family
DX: G47.33 Obstructive sleep apnea (adult) (pediatric) (principal); R09.02 Hypoxemia; E66.01 Morbid (severe) obesity due to excess calories; Z68.41 Body mass index [BMI] 40.0-44.9, adult

== ENCOUNTER 2022-07-25 10:04 | Outpatient (CLI) | payer MEDICARE, OTHER ==
--- NOTE | 2022-07-25 09:58 | SLEEP CARE CONSULTATION ---
Information from patient questionnaire entered by Forest Estrada. I have reviewed and concur with the information entered by Forest Estrada. This document represents the service I personally performed and the decisions made by me, Eboni Joyner ARNP. History of Present Illness Service Date and Time: 07/25/2022 0940 Previous diagnosis: Severe, Obstructive Sleep Apnea-Hypopnea Syndrome AHI: 41.1 (in 04/2022) Reason for follow up: first compliance Equipment type: CPAP (RESMED Airsense 11, s/u 05/2022) Equipment obtained from: Other ([employer], [employer] [facility] Mask style: Nasal pillows Mask brand: Resmed (Airfit P30i, large cushion) Backup mask available: Yes (other mask) Prior sleep studies: No Type of Sleep Study: Home sleep study (COMPLETED 04/23/22) HPI additional information: LINWOOD MEDINA was diagnosed to have very severe, AHI 41.1, obstructive sleep apnea-hypopnea syndrome and returns via video telehealth visit today for CPAP therapy first compliance follow-up. Sleep Study - Results Type of Sleep Study: Home sleep study (COMPLETED 04/23/22) Prior sleep studies: No CPAP Compliance Data - Data Reviewed with Patient Average duration of nightly device use: 7 HRS 16 MINS Compliance rate %: 97 (06/24/22-07/23/22; 30 days used) Current pressure setting (cmH2O): 4-20 (median 6.6, avg 10.7, max 11.9) Average residual AHI: 1.0 Central apnea: 0.1 Obstructive apnea: 0.4 Average large leak: 1.9 L/min Subjective Missed days of use due to: reports: mask issues Patient concerns: reports: dry mouth, nose, throat. denies: aerophagia, mask discomfort, air blowing in eyes, mask leak noise, condensation in mask/hose, nasal congestion, epistaxis Observed to snore while using device: Yes Current pressure setting perceived as: comfortable On therapy, patient: reports: sleeping better, more rested overall. denies: drowsiness while driving Initial [place] Sleepiness Scale score: 17 (03/23/22) Current [place] Sleepiness Scale score: 7 (07/25/22) Allergies and Home Medications Known drug allergies: No Drug allergies reviewed: Yes Home medication list reviewed: Yes (no changes) Allergy and home medication list: Allergies No Known Drug Allergies Allergy (Verified 07/24/22 14:09) Review of Systems Review of systems same as previous: Yes (no changes) Physical Exam Vital signs obtained and entered by: FOREST Zhang MA Height: 5 ft 11 in (PER PT) Weight: 310 lb (PER PT) Body Mass Index: 43.2 BMI Classification: Morbidly Obese Impression and Plan 1. Obstructive Sleep Apnea-Hypopnea Syndrome, severe, with good treatment compliance and good apnea control. On CPAP therapy, the patient has better sleep quality and is more rested overall. Patient tried a nasal pillows mask but it was a medium cushion and was leaking. He changed to a nasal cushion mask which worked okay but would lose its seal more often. He obtained and tried a large cushion and he found it much more comfortable. The patients pressure will be changed to autoCPAP 7-12 cmH20 to reflect pressure being used. Patient advised to contact me if pressure change is uncomfortable so that it can be adjusted. Goals for apnea control discussed. Patient's apnea severity and rationale for treatment to reduce apnea, improve sleep quality and reduce cardiovascular and cerebrovascular events was reviewed. I also reviewed the benefit of consistent device use of CPAP for hypertension and diabetes. 2. Obesity, unspecified. Currently patients BMI is 43.2. Obesity increases the risk of apnea, CPAP pressure requirements and overall health risks especially cardiovascular and diabetes. Thus patient is advised to lose weight. * Change auto CPAP pressure to 7-12 cmH2O * Notify me if snoring with mask or feeling that the pressure is too much or too little * Attempt to lose weight * Call this office if any problems using CPAP * Return for follow up in 1-2 months, or sooner if concerns arise Counseling Topics: Spare mask, Weight loss health impact Visit Type: Telehealth Video Video Type: Doximity Location of Provider: Office Patient agrees and consents to this telehealth visit type: Yes Patient agrees to have their insurance billed: Yes Time Spent with Patient (minutes): 20 Provider Statement: I spent 100% of the Telehealth Video Call with the patient with greater than 50% spent counseling the patient and coordination of care.
== END 2022-07-25 10:05 | disposition home or self-care (01) ==
LOC: SC 10:04
PROVIDERS: ATTEND Nurse Practitioner Family
DX: G47.33 Obstructive sleep apnea (adult) (pediatric) (principal); E66.01 Morbid (severe) obesity due to excess calories; Z68.41 Body mass index [BMI] 40.0-44.9, adult

== ENCOUNTER 2022-08-25 19:17 | Outpatient (CLI) | payer MEDICARE, OTHER | END 2022-08-25 23:59 | disposition EMS.NT | LOC: EMS 19:17 | DX: R06.02 Shortness of breath (principal) ==

== ENCOUNTER 2022-09-26 10:02 | Outpatient (CLI) | payer MEDICARE, OTHER ==
--- NOTE | 2022-09-26 09:58 | SLEEP CARE CONSULTATION ---
Information from patient questionnaire entered by Forest Estrada. I have reviewed and concur with the information entered by Forest Estrada. This document represents the service I personally performed and the decisions made by me, Eboni Joyner ARNP. History of Present Illness Service Date and Time: 09/26/2022 0940 Previous diagnosis: Severe, Obstructive Sleep Apnea-Hypopnea Syndrome AHI: 41.1 (in 04/2022) Reason for follow up: other (2MONTH F/U) Equipment type: CPAP (RESMED Airsense 11, s/u 05/2022) Equipment obtained from: Other ([facility] [employer], [employer]) Mask style: Nasal pillows Mask brand: Resmed (P30i) Backup mask available: Yes (other mask) Last cushion change: last week Prior sleep studies: No Type of Sleep Study: Home sleep study (COMPLETED 04/23/22) HPI additional information: LINWOOD MEDINA was diagnosed to have mild, AHI 41.1, obstructive sleep apnea- hypopnea syndrome and returns via video telehealth visit today for CPAP therapy two month follow-up. Sleep Study - Results Type of Sleep Study: Home sleep study (COMPLETED 04/23/22) Prior sleep studies: No CPAP Compliance Data - Data Reviewed with Patient Average duration of nightly device use: 7 HRS 5 MIN Compliance rate %: 98 (07/26/22-09/23/22; 60/60 days used) Current pressure setting (cmH2O): 7-12 Average residual AHI: 0.5 Central apnea: 0 Obstructive apnea: 0.2 Hypopnea: 0.2 Average large leak: 3.5 L/min Subjective Patient concerns: reports: dry mouth, nose, throat (dry throat, not often). denies: aerophagia, mask discomfort, air blowing in eyes, mask leak noise, condensation in mask/hose, nasal congestion, epistaxis Observed to snore while using device: No Current pressure setting perceived as: comfortable On therapy, patient: reports: sleeping better, awakening more refreshed, being more awake and alert during the day, more rested overall. denies: drowsiness while driving Initial [place] Sleepiness Scale score: 17 (03/23/22) Current [place] Sleepiness Scale score: 4 (09/26/22) Allergies and Home Medications Known drug allergies: No Drug allergies reviewed: Yes Home medication list reviewed: Yes (no changes) Allergy and home medication list: Allergies No Known Drug Allergies Allergy (Verified 09/25/22 13:21) Review of Systems Review of systems same as previous: Yes (no changes) Physical Exam Vital signs obtained and entered by: FOREST Zhang MA Height: 5 ft 11 in (PER PT) Weight: 320 lb (PER PT) Body Mass Index: 44.6 BMI Classification: Morbidly Obese Impression and Plan 1. Obstructive Sleep Apnea-Hypopnea Syndrome, mild, with good treatment compliance and good apnea control. On CPAP therapy, the patient has better sleep quality and is more rested overall. Patient has significant improvement of their sleep apnea and is satisfied with current CPAP therapy. Patient has had some dry throat but this is not often. He is using a nasal pillows mask, P30i, and he may occasionally have his mouth coming open. Patient denies problems with nasal congestion, epistaxis, skin irritation or aerophagia. He is very comfortable with his CPAP use and would like to have a follow-up next year. I advised him to call sooner for an appointment if he should develop any concerns and he voiced understanding. Patient's apnea severity and rationale for treatment to reduce apnea, improve sleep quality and reduce cardiovascular and cerebrovascular events was reviewed. I also reviewed the benefit of consistent device use of CPAP for hypertension and diabetes. 2. Obesity, unspecified. Currently patients BMI is 44.6. Obesity increases the risk of apnea, CPAP pressure requirements and overall health risks especially cardiovascular and diabetes. Thus patient is advised to lose weight. * Continue auto CPAP pressure at 7-12 cmH2O * Notify me if snoring with mask or feeling that the pressure is too much or too little * Attempt to lose weight * Call this office if any problems using CPAP * Return for follow up in 1 year, or sooner if concerns arise Counseling Topics: Spare mask, Weight loss health impact Visit Type: Telehealth Video Video Type: Doximity Patient Location: Home Location of Provider: Office Patient agrees and consents to this telehealth visit type: Yes Patient agrees to have their insurance billed: Yes Time Spent with Patient (minutes): 12 Provider Statement: I spent 100% of the Telehealth Video Call with the patient with greater than 50% spent counseling the patient and coordination of care.
== END 2022-09-26 10:03 | disposition home or self-care (01) ==
LOC: SC 10:02
PROVIDERS: ATTEND Nurse Practitioner Family
DX: G47.33 Obstructive sleep apnea (adult) (pediatric) (principal); E66.01 Morbid (severe) obesity due to excess calories; Z68.41 Body mass index [BMI] 40.0-44.9, adult

== ENCOUNTER 2022-10-15 08:00 | Outpatient (CLI) | payer MEDICARE, OTHER ==
--- NOTE | 2022-10-16 13:44 | XRAY Report ---
PROCEDURE: Wrist 3 View RT INDICATIONS: SPRAIN OF RIGHT WRIST TECHNIQUE: 3 views of the wrist were acquired. COMPARISON: None. FINDINGS: Bones: No fractures or dislocations. No suspicious bony lesions. Soft tissues: No suspicious soft tissue calcifications or masses. IMPRESSION: No acute bony abnormality. Reviewed by: Daryl Rojas on 10/16/2022 1:42 PM PDT Approved by: Daryl Rojas on 10/16/2022 1:42 PM PDT Station ID: [id number]
== END 2022-10-15 23:59 | disposition home or self-care (01) ==
LOC: DI.S 08:00
PROVIDERS: ATTEND Physician Assistant Medical
DX: S63.591A Other specified sprain of right wrist, initial encounter (principal)

== ENCOUNTER 2022-11-09 17:30 | Outpatient (CLI) | payer MEDICARE, OTHER ==
[2022-11-09 18:01] LABS: BASOPHILS % (AUTO) 0.6 %; EOSINOPHILS # (AUTO) 0.1 10^3/uL (0.0-0.7); EOSINOPHILS % (AUTO) 2.2 %; HCT - HEMATOCRIT 40.9 % (42.0-52.0); HGB - HEMOGLOBIN 13.8 g/dL (14.0-18.0); LYMPHOCYTES # (AUTO) 0.9 10^3/uL (1.5-3.5); LYMPHOCYTES % (AUTO) 18.7 %; MEAN CORPUSCULAR HEMOGLOBIN 32.5 pg (27.0-31.0); MEAN CORPUSCULAR HGB CONC 33.7 g/dL (32.0-36.0); MEAN CORPUSCULAR VOLUME 96.2 fL (80.0-94.0); MEAN PLATELET VOLUME 9.4 fL (7.4-11.4); MONOCYTES % (AUTO) 19.4 %; NEUTROPHILS % (AUTO) 58.5 %; PLT - PLATELET COUNT 177 10^3/uL (130-450); RED BLOOD COUNT 4.25 10^6/uL (4.70-6.10); RED CELL DISTRIBUTION WIDTH 12.3 % (12.0-15.0)
[2022-11-09 18:16] LABS: ALBUMIN 4.1 g/dL (3.2-5.5); ALBUMIN/GLOBULIN RATIO 1.5 (1.0-2.2); BILIRUBIN,TOTAL 0.4 mg/dL (0.2-1.0); CALCIUM 9.1 mg/dL (8.5-10.3); CREATININE 0.8 mg/dL (0.6-1.3); POTASSIUM 4.3 mmol/L (3.5-4.5); TOTAL PROTEIN 6.9 g/dL (6.4-8.9)
== END 2022-11-09 17:31 | disposition home or self-care (01) ==
LOC: LAB 17:30
PROVIDERS: ATTEND Physician Assistant Medical
DX: U07.1 COVID-19 (principal)
CPT/HCPCS: 36415; 80053; 85025

== ENCOUNTER 2022-12-23 13:05 | Outpatient (CLI) | payer MEDICARE, OTHER ==
[2022-12-23 15:39] LABS: CREATININE 0.9 mg/dL (0.6-1.3)
== END 2022-12-23 13:06 | disposition home or self-care (01) ==
LOC: LAB.S 13:05
PROVIDERS: ATTEND Internal Medicine
DX: Z79.899 Other long term (current) drug therapy (principal)
CPT/HCPCS: 36415; 82565

== ENCOUNTER 2023-01-02 10:03 | Outpatient (CLI) | payer MEDICARE, OTHER ==
[2023-01-02] MEDS ORDERED: BARIUM SULFATE 450 ML BOTTLE PO ONE (14:14)
[2023-01-02] MEDS ORDERED: iohexoL-300 100 ML VIAL IVP ONE (14:15)
--- NOTE | 2023-01-02 14:41 | CT Report ---
PROCEDURE: ABDOMEN/PELVIS W INDICATIONS: RIGHT UPPER QUAD PAIN CONTRAST: 100ml Omni 300 TECHNIQUE: After the administration of oral and intravenous contrast, 5 mm thick sections acquired from the diap hragms to the symphysis. 5 mm thick coronal and sagittal reformats were acquired. For radiation dos e reduction, the following was used: automated exposure control, adjustment of mA and/or kV accordin g to patient size. COMPARISON: CT abdomen and pelvis dated 07/26/2013 FINDINGS: Image quality: Excellent. Lung bases and heart: Unremarkable. Liver: At least moderate diffuse hepatic steatosis, progressed compared to the previous study. Hepato megaly. The craniocaudal dimension of the liver is 22.6 cm. Gallbladder and biliary tree: Surgically absent. No biliary dilation, accounting for post-cholecystec bozena state. Spleen: Borderline splenomegaly. Spleen measures 13.4 cm. Pancreas: No pancreatic ductal dilation. Adrenals: No adrenal nodule. Kidneys and ureters: No hydronephrosis. No renal cystic lesion which requires follow up. No solid mas s. There is a 5 x 12 mm stone in the lower pole of the right kidney, nonobstructive. Bowel and peritoneum: No bowel distension. No pathologic free fluid. Diverticulosis without evidence of diverticulitis. Lymph nodes: No central or retroperitoneal adenopathy. Vessels: No infrarenal aortic aneurysm. PELVIS Reproductive organs: Unremarkable. Bladder: No abnormal wall thickening, accounting for underdistension. Pelvic lymph nodes: No pelvic adenopathy by size criteria. Bones: No aggressive osseous abnormality. Bilateral total hip arthroplasties now present, with signif icant metal artifact in the lower pelvis. This obscures lower pelvic structures. Remote L4 laminectom y and L5-S1 posterior lateral barbara and pedicle screw fixation and interbody spacer placement. Other: No significant ventral or inguinal hernia. IMPRESSION: 1. Hepatomegaly, moderate diffuse hepatic steatosis. 2. Borderline splenomegaly. 3. Remote cholecystectomy. 4. Right nephrolithiasis. 5. Diverticulosis without evidence of diverticulitis. Reviewed by: Filiberto Zapien MD on 01/02/2023 2:40 PM PDT Approved by: Filiberto Zapien MD on 01/02/2023 2:40 PM PDT Station ID: [id number]
== END 2023-01-02 10:04 | disposition home or self-care (01) ==
LOC: DI 10:03
PROVIDERS: ATTEND Internal Medicine
DX: R10.11 Right upper quadrant pain (principal); R16.2 Hepatomegaly with splenomegaly, not elsewhere classified; K76.0 Fatty (change of) liver, not elsewhere classified; Z90.49 Acquired absence of other specified parts of digestive tract; N20.0 Calculus of kidney; K57.90 Diverticulosis of intestine, part unspecified, without perforation or abscess without bleeding; Z79.899 Other long term (current) drug therapy
CPT/HCPCS: 74177; A9270; Q9967

== ENCOUNTER 2023-09-25 16:09 | Outpatient (CLI) | payer MEDICARE, OTHER ==
--- NOTE | 2023-09-25 15:44 | SLEEP CARE CONSULTATION ---
Information from patient questionnaire entered by Aide Estrada. I have reviewed and concur with the information entered by Aide Estrada. This document represents the service I personally performed and the decisions made by me, Eboni Joyner ARNP. History of Present Illness Service Date and Time: 09/25/2023 1540 Previous diagnosis: Severe, Obstructive Sleep Apnea-Hypopnea Syndrome AHI: 41.1 (in 04/2022) Reason for follow up: annual (LAST SEEN 08/2022) Equipment type: CPAP (RESMED Airsense 11, s/u 05/2022) Equipment obtained from: Other ([facility], getting supplies) Mask style: Nasal pillows Mask brand: Resmed (P30i) Backup mask available: Yes Last cushion change: 2-3 weeks Prior sleep studies: No Type of Sleep Study: Home sleep study (COMPLETED 04/23/22) HPI additional information: LINWOOD MEDINA was diagnosed to have severe, AHI 41.1, obstructive sleep apnea- hypopnea syndrome and returns via video appointment today for CPAP therapy annual follow-up. Sleep Study - Results Type of Sleep Study: Home sleep study (COMPLETED 04/23/22) Prior sleep studies: No CPAP Compliance Data - Data Reviewed with Patient Average duration of nightly device use: 7 HRS 23 MINS Compliance rate %: 97 (09/23/22-09/22/23; 365/365 days used) Current pressure setting (cmH2O): 7-12 Average residual AHI: 0.5 Central apnea: 0.1 Obstructive apnea: 0.2 Hypopnea: 0.1 Average large leak: 1.9 L/min Subjective Missed days of use due to: reports: other (ALHAJI) Patient concerns: denies: aerophagia, mask discomfort, air blowing in eyes, mask leak noise, condensation in mask/hose, nasal congestion, dry mouth, nose, throa t, epistaxis Observed to snore while using device: No Current pressure setting perceived as: comfortable On therapy, patient: reports: sleeping better, awakening more refreshed, being more awake and alert during the day, more rested overall. denies: drowsiness while driving Initial [place] Sleepiness Scale score: 17 (03/23/22) Current [place] Sleepiness Scale score: 12 (09/25/23) Allergies and Home Medications Known drug allergies: No Drug allergies reviewed: Yes Home medication list reviewed: Yes (Ozempic) Allergy and home medication list: Allergies No Known Drug Allergies Allergy (Verified 09/25/23 15:15) Home Medications Medication Instructions Recorded Confirmed Last Taken Type Ibuprofen [Motrin Ib] See Rx Instructions .ROUTE .COMPLEX 04/02/22 09/25/23 Unknown History Tamsulosin [Flomax] See Rx Instructions .ROUTE .COMPLEX 04/02/22 09/25/23 Unknown History Semaglutide [Ozempic] See Rx Instructions .ROUTE .COMPLEX 09/25/23 09/25/23 Unknown History Review of Systems Review of systems same as previous: No (SHOULDER SUGERY 01/2023 LUMBAR SUGERY 08/2023) Physical Exam Vital signs obtained and entered by: AIDE Zhang MA Height: 5 ft 11 in (PER PT) Weight: 295 lb (PER PT) Body Mass Index: 41.1 BMI Classification: Morbidly Obese Impression and Plan 1. Obstructive Sleep Apnea-Hypopnea Syndrome, severe, with good treatment compliance and good apnea control. On CPAP therapy, the patient has better sleep quality and is more rested overall. He has significant improvement of his sleep apnea and is satisfied with current CPAP therapy. He has no complaints or issues with using the CPAP. He intends to continue to use his CPAP long-term. He does ask if Medicare will cover the cost of a travel CPAP. I explained to him that as far as I know they will not cover the cost of a travel CPAP. He voiced understanding. Patient's apnea severity and rationale for treatment to reduce apnea, improve sleep quality and reduce cardiovascular and cerebrovascular events was reviewed. I also reviewed the benefit of consistent device use of CPAP for hypertension, diabetes. 2. Obesity, unspecified. Currently patients BMI is 41.1. Obesity increases the risk of apnea, CPAP pressure requirements and overall health risks especially cardiovascular and diabetes. Thus patient is advised to lose weight. * Continue auto CPAP pressure at 7-12 cmH2O * Update supply prescription * Notify me if snoring with mask or feeling that the pressure is too much or too little * Attempt to lose weight * Call this office if any problems using CPAP * Return for follow up in 12 months, or sooner if concerns arise Continue with device pressure at (cmH2O): 7-12 Counseling Topics: Spare mask, Weight loss health impact Prescriptions: Device supplies Follow up with Sleep Care in: 1 year Visit Type: Telehealth Video Video Type: Doximity Patient Location: Home Location of Provider: Office Patient agrees and consents to this telehealth visit type: Yes Patient agrees to have their insurance billed: Yes Time Spent with Patient (minutes): 20 Provider Statement: I spent 100% of the Telehealth Video Call with the patient with greater than 50% spent counseling the patient and coordination of care.
== END 2023-09-25 16:10 | disposition home or self-care (01) ==
LOC: SC 16:09
PROVIDERS: ATTEND Nurse Practitioner Family
DX: G47.33 Obstructive sleep apnea (adult) (pediatric) (principal); E66.01 Morbid (severe) obesity due to excess calories; Z68.41 Body mass index [BMI] 40.0-44.9, adult